=== PATIENT | female | born 1980 | race Caucasian/White ===

== ENCOUNTER 2016-11-15 16:21 | Emergency (ER) | payer OTHER, MEDICAID ==
[~2016-11-15] VITALS: Ht 175.3 cm; Wt 67.0 kg
[~2016-11-15 16:21] MED LIST: FIORIC PO
[2016-11-15 16:23] VITALS: BP 142/89; PULSE 73; RESP 15; TEMP 97.7; O2SAT 98
[2016-11-15] MEDS ORDERED: BUTA1CAP PO (17:05)
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
[2016-11-15] MEDS ORDERED: ROBA750T PO (18:37)
[2016-11-15] MEDS ORDERED: DICL50TA PO (18:37)
[2016-11-15] MEDS ORDERED: KETOROLAC TROMETHAMINE 60 MG/2 ML (IM) VIAL IM ONE (18:45)
[2016-11-15] MEDS ORDERED: ORPHENADRINE INJ 60 MG/2 ML AMP IM ONE (18:45)
== END 2016-11-15 19:15 | disposition home or self-care (01) ==
LOC: NEPB 16:21
DX: S16.1XXA Strain of muscle, fascia and tendon at neck level, initial encounter (principal); F17.210 Nicotine dependence, cigarettes, uncomplicated; V43.52XA Car driver injured in collision with other type car in traffic accident, initial encounter; Y93.9 Activity, unspecified; Y92.9 Unspecified place or not applicable; Y99.9 Unspecified external cause status
CPT/HCPCS: 70450; 72125; 96372; 99284; J1885; J2360